=== PATIENT | female | born 1970 | race African-American/Black ===

== ENCOUNTER 2020-04-10 13:44 | Inpatient (IN) | payer MEDICAID ==
[~2020-04-10] VITALS: Ht 167.6 cm; Wt 121.5 kg
--- NOTE | 2020-04-10 14:21 | NUR ---
THIS IS A 49 YO F W/ C/O RT EAR PAIN AND SORE THROAT. PT STATES THAT SHE HAS BEEN GETTING SOB AT NIGHT AND HER LEGS SWELL AT NIGHT. PT DENIES COUGH/CP. PT 82% RA. PLACED ON 2L NC W/ DESIRED EFFECT. PT REPORTS HX OF HTN BUT HAS NOT BEEN ON MEDS X1 YEAR. PT RESTING ON [employer] [employer] W/ CALL LIGHT IN REACH, SIDE RAILS UPX2. AT BEDSIDE FOR ED EVAL. Addendum: 04/10/20 at 1857 by CBRUCIAGA REPORT GIVEN TO MARITZA HACKETT.
--- NOTE | 2020-04-10 14:47 | NUR ---
PIV STARTED, LABS DRAWN AND SENT TO LAB.
[2020-04-10 15:01] LABS: MD NO
[2020-04-10 15:06] LABS: ALBUMIN 3.7 g/dL (3.4-5.0); ANION GAP 5 mmol/L (5-15); CALCIUM 8.4 mg/dL (8.5-10.1); CHLORIDE 106 mmol/L (98-107); CREATININE 0.73 mg/dL (0.55-1.02)
[2020-04-10 15:08] LABS: BASOPHILS # (AUTO) 0.06 x10^3/uL (0-0.1); BASOPHILS % (AUTO) 2 % (0-1); EOSINOPHILS # (AUTO) 0.12 x10^3/uL (0-0.4); EOSINOPHILS % (AUTO) 4 % (1-7); LYMPHOCYTES # (AUTO) 1.42 x10^3/uL (1-3.4); LYMPHOCYTES % (AUTO) 42 % (22-44); MEAN CORPUSCULAR VOLUME 103.2 fL (80-100); MEAN PLATELET VOLUME 7.9 fL (7.4-10.4); MONOCYTES # (AUTO) 0.27 x10^3/uL (0.2-0.8); MONOCYTES % (AUTO) 8 % (2-9); NEUTROPHILS # (AUTO) 1.54 x10^3/uL (1.8-6.8); NEUTROPHILS % (AUTO) 45 % (42-75); PLATELET COUNT 238 x10^3/uL (130-400); RED BLOOD COUNT 3.98 x10^6/uL (3.82-5.3); RED CELL DISTRIBUTION WIDTH 17.7 % (9.6-15.2)
--- NOTE | 2020-04-10 15:08 | NUR ---
PT AMBULATED TO THE BR W/ A STEADY GAIT. 86% RA WHEN RETURNED TO ROOM. PLACED ON 2L NC W/ DESIRED EFFECT. CONNECTED TO ALL MONITORING, AWAITING RESULTS.
[2020-04-10 15:12] LABS: TROPONIN I 0.209 ng/mL (0.000-0.045)
[2020-04-10] MEDS ORDERED: ASPIRIN 81 MG TABLET CHEW ONE (15:17)
[2020-04-10] MEDS ORDERED: ASPIRIN 81 MG TABLET CHEW PO ONE (15:30)
[2020-04-10] MEDS ORDERED: SODIUM CHLORIDE FLUSH 10ML SYR IVF ONE (15:30)
[2020-04-10] MEDS ORDERED: ASPIRIN 325 MG TABLET EC PO ONE (15:30)
--- NOTE | 2020-04-10 15:40 | NUR ---
SPOKE W/ REGARDING PT MEETING SEPSIS CRITERIA. NEW ORDERS RECEIVED.
--- NOTE | 2020-04-10 15:44 | NUR ---
URINE COLLECTED AND SENT TO LAB.
[2020-04-10 16:01] LABS: MICROSCOPIC AUTO
--- NOTE | 2020-04-10 16:23 | NUR ---
PER PT IS NOT COIVD R/O AT THIS TIME.
--- NOTE | 2020-04-10 17:02 | NUR ---
UPDATED ON BP 177/93. NO NEW ORDERS RECEIVED.
--- NOTE | 2020-04-10 17:04 | NUR ---
TELEPHONE CALL TO CT REGARDING DELAY. TECH STATES THAT SHE IS NEXT.
--- NOTE | 2020-04-10 17:16 | NUR ---
PT SLEEPING ON GURNEY W/ SIDE RAILS UPX2. CONNECTED TO ALL MONITORING, HYPERTENSIVE AND TACHYCARDIC, OTHER VS WDL. CHEST RISE AND FALL OBSERVED. AWAITING CTA.
--- NOTE | 2020-04-10 17:23 | NUR ---
PT TO CT.
--- NOTE | 2020-04-10 17:37 | NUR ---
PT BACK FROM CT.
[2020-04-10] MEDS ORDERED: OMNIPAQUE 350 MG/ML, 100ML BOTTLE ONE (17:43)
--- NOTE | 2020-04-10 18:06 | NUR ---
PT UPDATED ON POC FO ADMIT. CARDIOLOGY TO SEE TOMORROW MORNING.
--- NOTE | 2020-04-10 18:17 | NUR ---
Keri lester in [facility] - 04/10/20 at 1818 by ZVE PINK SEPSIS SHEET TUBED TO FLOOR.
--- NOTE | 2020-04-10 18:27 | NUR ---
PT SPO2 90-92% RA WHILE SITTING ON GURNEY. AMBULATED TO THE BR W/ A STEADY GAIT. UPON RETURN 85% RA. PLACED BACK ON 2L NC W/ DESIRED EFFECT.
--- NOTE | 2020-04-10 18:44 | NUR ---
ADMITTING PROVIDER IN ROOM.
--- NOTE | 2020-04-10 18:57 | NUR ---
REPORT FROM ROXANN WEBER
[2020-04-10] MEDS ORDERED: ENOXAPARIN 40 MG/0.4 ML SQ SCH (19:30)
[2020-04-10] MEDS ORDERED: ONDANSETRON 2MG/ML, 2ML IVPush PRN (19:30)
[2020-04-10] MEDS ORDERED: SODIUM CHLORIDE FLUSH 10ML SYR IVF PRN (19:30)
[2020-04-10 19:36] LABS: D-DIMER (DIC) 4.55 ug/mlFEU (0.00-0.52); PROTIME 9.5 Seconds (9.6-11.5)
[2020-04-10 19:39] LABS: C-REACTIVE PROTEIN, QUANT 0.06 mg/dL (0.02-0.49)
[2020-04-10] MEDS ORDERED: OXYcodone/APAP 5/325MG TABLET ONE (20:36)
[2020-04-10] MEDS ORDERED: ENOXAPARIN 40 MG/0.4 ML ONE (20:36)
[2020-04-10] MEDS: OXYcodone/APAP 5/325MG TABLET PO PRN (20:39)
--- NOTE | 2020-04-10 20:50 | NUR ---
PT MEDICATED FOR PAIN DUE TO COMPLAINTS OF PAIN IN THE RIGH EAR.
--- NOTE | 2020-04-10 20:56 | NUR ---
REPORT TO ROXANN OJEDA
[2020-04-10 21:20] LABS: TROPONIN I 0.174 ng/mL (0.000-0.045)
[2020-04-10 21:49] VITALS: BP 172/105
[2020-04-11 00:31] VITALS: BP 171/104
[2020-04-11] MEDS: hydrALAzine 20 MG/ML, 1ML IVPush PRN ×2 (01:21→21:19)
[2020-04-11] MEDS: OXYcodone/APAP 5/325MG TABLET PO PRN (01:23)
[2020-04-11 01:30] VITALS: BP 172/105
[2020-04-11 02:00] VITALS: BP 154/99
[2020-04-11 05:25] LABS: BASOPHILS # (AUTO) 0.02 x10^3/uL (0-0.1); BASOPHILS % (AUTO) 1 % (0-1); EOSINOPHILS # (AUTO) 0.18 x10^3/uL (0-0.4); EOSINOPHILS % (AUTO) 5 % (1-7); LYMPHOCYTES # (AUTO) 1.35 x10^3/uL (1-3.4); LYMPHOCYTES % (AUTO) 40 % (22-44); MD NO; MEAN CORPUSCULAR HEMOGLOBIN 34.3 pg (27.0-34.8); MEAN CORPUSCULAR HGB CONC 33.1 g/dL (32.4-35.8); MEAN CORPUSCULAR VOLUME 103.8 fL (80-100); MEAN PLATELET VOLUME 7.9 fL (7.4-10.4); MONOCYTES # (AUTO) 0.44 x10^3/uL (0.2-0.8); MONOCYTES % (AUTO) 13 % (2-9); NEUTROPHILS % (AUTO) 41 % (42-75); PLATELET COUNT 208 x10^3/uL (130-400); RED BLOOD COUNT 3.78 x10^6/uL (3.82-5.3); RED CELL DISTRIBUTION WIDTH 17.6 % (9.6-15.2)
[2020-04-11 05:28] LABS: ANION GAP 5 mmol/L (5-15); CALCIUM 8.4 mg/dL (8.5-10.1); CHLORIDE 107 mmol/L (98-107); CREATININE 0.65 mg/dL (0.55-1.02)
[2020-04-11 07:32] LABS: CHOL/HDL RATIO 1.9; LDL/HDL RATIO 0.7 (0.5-3.0)
[2020-04-11 08:00] VITALS: BP 148/88
[2020-04-11] MEDS: CHOLECALCIFEROL 1,000 UNIT TABLET PO SCH (08:29)
[2020-04-11] MEDS: ZINC SULFATE 220 MG CAPSULE PO SCH (08:29)
[2020-04-11] MEDS: ASCORBIC ACID 500 MG TABLET PO SCH ×3 (08:29→21:11)
[2020-04-11] MEDS: methylPREDNISolone SOD SUCC 40 MG/ML IV SCH ×2 (08:29→19:52)
[2020-04-11] MEDS: DOXYCYCLINE 100MG TABLET PO SCH ×2 (08:29→21:11)
[2020-04-11] MEDS: ACETAMINOPHEN 325 MG TABLET PO PRN (08:30)
[2020-04-11] MEDS: CEFTRIAXONE PMX 1GM/50ML 50 ML IV SCH (08:31)
[2020-04-11] MEDS ORDERED: DIAZEPAM 5 MG TABLET PO PRN (09:30)
[2020-04-11] MEDS ORDERED: PHENOL THROAT SPRAY BOTTLE MM PRN (11:00)
[2020-04-11] MEDS ORDERED: LORazepam 1MG TABLET PO PRN ×2 (11:00)
[2020-04-11] MEDS ORDERED: LORazepam 2 MG/ML, 1ML IV PRN ×4 (11:00)
[2020-04-11] MEDS ORDERED: LORazepam 0.5MG TABLET PO PRN (11:00)
[2020-04-11] MEDS ORDERED: POTASSIUM CHLORIDE 20 MEQ TAB.ER.PRT PO ONE (11:00)
[2020-04-11] MEDS: LORazepam 1MG TABLET PO PRN ×2 (11:29→19:52)
[2020-04-11] MEDS: THIAMINE 200 MG in DEXTROSE 5% 50 ML IVPB SCH (11:30)
[2020-04-11 12:21] LABS: ALANINE AMINOTRANSFERASE 111 U/L (12-78); ALBUMIN 3.6 g/dL (3.4-5.0); ALKALINE PHOSPHATASE 60 U/L (45-117); BILIRUBIN,TOTAL 0.4 mg/dL (0.2-1.0); TOTAL PROTEIN 7.9 g/dL (6.4-8.2)
[2020-04-11 12:27] LABS: BILIRUBIN, DIRECT < 0.1 mg/dL (0.1-0.2); BILIRUBIN,INDIRECT 0.3 mg/dL (0.0-2.0)
[2020-04-11] MEDS ORDERED: MAGNESIUM SULFATE PMX 2GM/50ML 50 ML IV ONE (13:30)
[2020-04-11 14:00] VITALS: BP 144/86
[2020-04-11 19:54] VITALS: BP 178/88
[2020-04-11] MEDS: ATORVASTATIN 40 MG TABLET PO SCH (21:11)
[2020-04-11] MEDS: ENOXAPARIN 60 MG/0.6 ML SQ SCH (21:11)
[2020-04-11] MEDS: MELATONIN 5 MG TABLET PO SCH (21:11)
[2020-04-12 01:03] VITALS: BP 149/80
[2020-04-12] MEDS: methylPREDNISolone SOD SUCC 40 MG/ML IV SCH ×2 (06:25→17:48)
[2020-04-12] MEDS: ASPIRIN 81 MG TABLET EC PO SCH (06:25)
[2020-04-12] MEDS: THIAMINE 200 MG in DEXTROSE 5% 50 ML IVPB SCH (09:34)
[2020-04-12] MEDS: CEFTRIAXONE PMX 1GM/50ML 50 ML IV SCH (09:34)
[2020-04-12] MEDS: DOXYCYCLINE 100MG TABLET PO SCH ×2 (09:41→21:15)
[2020-04-12] MEDS: ZINC SULFATE 220 MG CAPSULE PO SCH (09:41)
[2020-04-12] MEDS: CHOLECALCIFEROL 1,000 UNIT TABLET PO SCH (09:42)
[2020-04-12] MEDS: ASCORBIC ACID 500 MG TABLET PO SCH ×3 (09:42→21:16)
[2020-04-12] MEDS: LISINOPRIL 20 MG TABLET PO SCH ×2 (09:42→21:16)
[2020-04-12 09:48] VITALS: BP 159/100
[2020-04-12] MEDS: DIAZEPAM 5 MG TABLET PO PRN (12:17)
[2020-04-12] MEDS: hydrALAzine 20 MG/ML, 1ML IVPush PRN (12:30)
[2020-04-12 12:37] VITALS: BP 168/102
[2020-04-12] MEDS ORDERED: AMLODIPINE 10 MG TAB ONE (13:58)
[2020-04-12] MEDS ORDERED: LABETALOL 5MG/ML, 20ML IVPush PRN (14:00)
[2020-04-12] MEDS: AMLODIPINE 5 MG TABLET PO SCH (14:14)
[2020-04-12] MEDS: LORazepam 1MG TABLET PO PRN ×2 (15:32→20:10)
[2020-04-12 20:10] VITALS: BP 177/107
[2020-04-12] MEDS: MELATONIN 5 MG TABLET PO SCH (21:16)
[2020-04-12] MEDS: ATORVASTATIN 40 MG TABLET PO SCH (21:16)
[2020-04-12] MEDS: ENOXAPARIN 60 MG/0.6 ML SQ SCH (21:16)
[2020-04-13 00:30] VITALS: BP 160/79
[2020-04-13] MEDS: ACETAMINOPHEN 325 MG TABLET PO PRN (04:27)
[2020-04-13 05:29] LABS: BASOPHILS # (AUTO) 0.04 x10^3/uL (0-0.1); BASOPHILS % (AUTO) 1 % (0-1); EOSINOPHILS % (AUTO) 0 % (1-7); LYMPHOCYTES # (AUTO) 1.03 x10^3/uL (1-3.4); LYMPHOCYTES % (AUTO) 16 % (22-44); MD NO; MEAN CORPUSCULAR HEMOGLOBIN 33.4 pg (27.0-34.8); MEAN CORPUSCULAR HGB CONC 32.1 g/dL (32.4-35.8); MEAN CORPUSCULAR VOLUME 104.1 fL (80-100); MEAN PLATELET VOLUME 8.5 fL (7.4-10.4); MONOCYTES # (AUTO) 0.65 x10^3/uL (0.2-0.8); MONOCYTES % (AUTO) 10 % (2-9); NEUTROPHILS # (AUTO) 4.73 x10^3/uL (1.8-6.8); NEUTROPHILS % (AUTO) 73 % (42-75); PLATELET COUNT 228 x10^3/uL (130-400); RED BLOOD COUNT 4.23 x10^6/uL (3.82-5.3)
[2020-04-13 05:34] LABS: ALBUMIN 3.7 g/dL (3.4-5.0); ANION GAP 5 mmol/L (5-15); CALCIUM 10.2 mg/dL (8.5-10.1); CHLORIDE 101 mmol/L (98-107)
[2020-04-13 05:37] LABS: ALANINE AMINOTRANSFERASE 61 U/L (12-78); ALKALINE PHOSPHATASE 59 U/L (45-117); BILIRUBIN,TOTAL 0.5 mg/dL (0.2-1.0); TOTAL PROTEIN 8.1 g/dL (6.4-8.2)
[2020-04-13] MEDS: ASPIRIN 81 MG TABLET EC PO SCH (06:03)
[2020-04-13] MEDS: methylPREDNISolone SOD SUCC 40 MG/ML IV SCH ×2 (06:04→18:46)
[2020-04-13 06:31] VITALS: BP 164/108
[2020-04-13] MEDS ORDERED: REGADENOSON 0.4 MG/5 ML SYRINGE ONE ×2 (07:53→07:55)
[2020-04-13] MEDS ORDERED: LISINOPRIL 10 MG TABLET ONE ×2 (08:07→19:56)
[2020-04-13] MEDS: DOXYCYCLINE 100MG TABLET PO SCH ×2 (10:13→20:01)
[2020-04-13] MEDS: ASCORBIC ACID 500 MG TABLET PO SCH ×3 (10:13→20:02)
[2020-04-13] MEDS: CHOLECALCIFEROL 1,000 UNIT TABLET PO SCH (10:13)
[2020-04-13] MEDS: ZINC SULFATE 220 MG CAPSULE PO SCH (10:13)
[2020-04-13] MEDS: LISINOPRIL 20 MG TABLET PO SCH ×2 (10:21→20:52)
[2020-04-13] MEDS: AMLODIPINE 5 MG TABLET PO SCH (10:22)
[2020-04-13] MEDS: CEFTRIAXONE PMX 1GM/50ML 50 ML IV SCH (10:24)
[2020-04-13] MEDS: THIAMINE 200 MG in DEXTROSE 5% 50 ML IVPB SCH (11:13)
[2020-04-13 12:42] VITALS: BP 133/93
[2020-04-13] MEDS ORDERED: SODIUM CHLORIDE 0.9% 1,000 ML IV SCH (12:50)
[2020-04-13] MEDS ORDERED: CEFAZOLIN PMX 1GM/50ML 50 ML IVPB ONE (13:00)
[2020-04-13] MEDS ORDERED: FENTANYL PF 100 MCG/2ML ONE (13:23)
[2020-04-13] MEDS ORDERED: LIDOCAINE 2%, 20ML ONE (13:24)
[2020-04-13] MEDS ORDERED: CEFAZOLIN 1,000 MG ONE (13:24)
[2020-04-13] MEDS ORDERED: CEFAZOLIN PMX 1GM/50ML 50 ML ONE (13:24)
[2020-04-13] MEDS ORDERED: MIDAZOLAM 1 MG/ML, 5ML ONE (13:24)
[2020-04-13 16:41] VITALS: BP 157/86
[2020-04-13 19:04] VITALS: BP 168/108
[2020-04-13] MEDS: ATORVASTATIN 40 MG TABLET PO SCH (20:02)
[2020-04-13] MEDS: MELATONIN 5 MG TABLET PO SCH (20:02)
[2020-04-14 01:49] VITALS: BP 159/110
[2020-04-14] MEDS: ASPIRIN 81 MG TABLET EC PO SCH (05:15)
[2020-04-14] MEDS: SODIUM CHLORIDE 0.9% 1,000 ML IV SCH ×3 (05:16→23:10)
[2020-04-14 07:26] VITALS: BP 158/91
[2020-04-14] MEDS ORDERED: CEFAZOLIN PMX 1GM/50ML 50 ML IV ONE (08:00)
[2020-04-14] MEDS: ASCORBIC ACID 500 MG TABLET PO SCH ×3 (08:29→23:09)
[2020-04-14] MEDS: ZINC SULFATE 220 MG CAPSULE PO SCH (08:30)
[2020-04-14] MEDS: AMLODIPINE 5 MG TABLET PO SCH (08:30)
[2020-04-14] MEDS: CHOLECALCIFEROL 1,000 UNIT TABLET PO SCH (08:30)
[2020-04-14] MEDS: methylPREDNISolone SOD SUCC 40 MG/ML IV SCH ×2 (08:30→23:08)
[2020-04-14] MEDS: DOXYCYCLINE 100MG TABLET PO SCH ×2 (08:30→23:09)
[2020-04-14] MEDS: LISINOPRIL 20 MG TABLET PO SCH ×2 (08:35→23:09)
[2020-04-14] MEDS: CEFTRIAXONE PMX 1GM/50ML 50 ML IV SCH (09:31)
[2020-04-14] MEDS ORDERED: THIAMINE 100MG TABLET PO SCH (10:00)
[2020-04-14] MEDS: THIAMINE 100MG TABLET PO SCH (10:18)
[2020-04-14] MEDS: DIAZEPAM 5 MG TABLET PO PRN (10:24)
[2020-04-14 12:51] VITALS: BP 154/103
[2020-04-14] MEDS ORDERED: MIDAZOLAM 1 MG/ML, 2ML ONE ×3 (13:24→14:41)
[2020-04-14] MEDS ORDERED: CEFAZOLIN PMX 1GM/50ML 50 ML ONE (13:24)
[2020-04-14] MEDS ORDERED: FENTANYL PF 100 MCG/2ML ONE ×3 (13:24→14:41)
[2020-04-14] MEDS ORDERED: CEFAZOLIN 1,000 MG ONE (13:24)
[2020-04-14] MEDS ORDERED: LIDOCAINE 1%, 20ML ONE ×2 (13:24→14:36)
[2020-04-14] MEDS ORDERED: LIDOCAINE 2%, 20ML ONE (14:25)
[2020-04-14] MEDS ORDERED: HOLD MEDICATION MC PRN (15:30)
[2020-04-14] MEDS ORDERED: ACETAMINOPHEN 325 MG TABLET PO PRN (15:30)
[2020-04-14 19:20] VITALS: BP 149/74
[2020-04-14] MEDS: CEFAZOLIN PMX 1GM/50ML 100 ML IVPB SCH (23:08)
[2020-04-14] MEDS: ATORVASTATIN 40 MG TABLET PO SCH (23:08)
[2020-04-14] MEDS: MELATONIN 5 MG TABLET PO SCH (23:09)
[2020-04-14 23:13] VITALS: BP 134/91
[2020-04-15 03:35] VITALS: BP 137/80
[2020-04-15] MEDS: SODIUM CHLORIDE 0.9% 1,000 ML IV SCH (06:00)
[2020-04-15] MEDS: ASPIRIN 81 MG TABLET EC PO SCH (06:32)
[2020-04-15] MEDS: CEFAZOLIN PMX 1GM/50ML 100 ML IVPB SCH (06:32)
[2020-04-15 07:32] VITALS: BP 148/87
[2020-04-15] MEDS ORDERED: METOPROLOL SUCCINATE 25 MG TAB.ER.24H PO SCH (08:00)
[2020-04-15] MEDS: methylPREDNISolone SOD SUCC 40 MG/ML IV SCH (08:37)
[2020-04-15] MEDS: CEFTRIAXONE PMX 1GM/50ML 50 ML IV SCH (08:37)
[2020-04-15] MEDS: ASCORBIC ACID 500 MG TABLET PO SCH (08:37)
[2020-04-15] MEDS: DOXYCYCLINE 100MG TABLET PO SCH (08:37)
[2020-04-15] MEDS: CHOLECALCIFEROL 1,000 UNIT TABLET PO SCH (08:38)
[2020-04-15] MEDS: AMLODIPINE 5 MG TABLET PO SCH (08:38)
[2020-04-15] MEDS: ZINC SULFATE 220 MG CAPSULE PO SCH (08:38)
[2020-04-15] MEDS: THIAMINE 100MG TABLET PO SCH (08:38)
[2020-04-15] MEDS ORDERED: LOSARTAN 50MG TABLET PO SCH (09:00)
[2020-04-15] MEDS ORDERED: ATOR40TA78 PO (11:46)
[2020-04-15] MEDS ORDERED: ASCO500T9 PO (11:46)
[2020-04-15] MEDS ORDERED: AMLO-150 PO (11:46)
[2020-04-15] MEDS ORDERED: LOSA50TA2 PO (11:46)
[2020-04-15] MEDS ORDERED: CHOL10003 PO (11:46)
[2020-04-15] MEDS ORDERED: METO25TA91 PO (11:46)
[2020-04-15] MEDS ORDERED: ASPI81TA45 PO (11:46)
== END 2020-04-15 13:28 | disposition home or self-care (01) | DRG 242 ==
LOC: ED 14:48 → EDIP 18:34 → ICU 21:35 → 4WST 04-13 00:08 → 5SO 04-14 14:55 → DCLOUNGE 04-15 13:00
PROVIDERS: ADMIT Internal Medicine; ATTEND Family Medicine
PROC: 0JH606Z Insertion of Pacemaker, Dual Chamber into Chest Subcutaneous Tissue and Fascia, Open Approach (ICD-10-PCS; principal; 2020-04-14)
PROC: 02HK3JZ Insertion of Pacemaker Lead into Right Ventricle, Percutaneous Approach (ICD-10-PCS; 2020-04-14)
PROC: 02H63JZ Insertion of Pacemaker Lead into Right Atrium, Percutaneous Approach (ICD-10-PCS; 2020-04-14)
DX: I49.5 Sick sinus syndrome (principal); I21.A1 Myocardial infarction type 2; I46.9 Cardiac arrest, cause unspecified; J96.91 Respiratory failure, unspecified with hypoxia; I82.B12 Acute embolism and thrombosis of left subclavian vein; Z20.828 Contact with and (suspected) exposure to other viral communicable diseases; D72.819 Decreased white blood cell count, unspecified; D75.89 Other specified diseases of blood and blood-forming organs; E66.01 Morbid (severe) obesity due to excess calories; E78.5 Hyperlipidemia, unspecified; F17.210 Nicotine dependence, cigarettes, uncomplicated; G47.33 Obstructive sleep apnea (adult) (pediatric); I11.9 Hypertensive heart disease without heart failure; H92.01 Otalgia, right ear; M79.89 Other specified soft tissue disorders; R60.0 Localized edema; Z03.818 Encounter for observation for suspected exposure to other biological agents ruled out
CPT/HCPCS: 36415; 84145; 93017; 96372; 99285; J3490; 71045; 71275; 78452; 80048; 80053; 80061; 80076; 81001; 82040; 82607; 82728; 83605; 83615; 83735; 83880; 84100; 84443; 84484; 85025; 85049; 85379; 85384; 85610; 85730; 86140; 87040; 87081; 87635; 87880; 93005; 93308; 93321; 93325; G0378; J0690; J0696; J1650; J2250; J2785; J3010; J3411; Q9967; A9502; J0360; J2920; J3475; J7030

== ENCOUNTER 2020-04-29 16:55 | Observation (INO) | payer MEDICAID ==
[~2020-04-29] VITALS: Ht 167.6 cm; Wt 119.5 kg
[~2020-04-29 16:55] MED LIST: AMLO-150 PO; ASCO500T9 PO; ASPI81TA45 PO; ATOR40TA78 PO; CHOL10003 PO; LOSA50TA2 PO; METO25TA91 PO
--- NOTE | 2020-04-29 17:27 | NUR ---
DEPUTY PROBATION OFFICER: PT TO ROOM FROM ANABELLA GARCÍA
[2020-04-29 19:32] LABS: BASOPHILS # (AUTO) 0.02 x10^3/uL (0-0.1); BASOPHILS % (AUTO) 1 % (0-1); EOSINOPHILS # (AUTO) 0.23 x10^3/uL (0-0.4); EOSINOPHILS % (AUTO) 5 % (1-7); LYMPHOCYTES # (AUTO) 1.41 x10^3/uL (1-3.4); LYMPHOCYTES % (AUTO) 33 % (22-44); MD NO; MEAN CORPUSCULAR HGB CONC 32.3 g/dL (32.4-35.8); MEAN CORPUSCULAR VOLUME 105.2 fL (80-100); MEAN PLATELET VOLUME 7.3 fL (7.4-10.4); MONOCYTES # (AUTO) 0.38 x10^3/uL (0.2-0.8); MONOCYTES % (AUTO) 9 % (2-9); NEUTROPHILS # (AUTO) 2.25 x10^3/uL (1.8-6.8); NEUTROPHILS % (AUTO) 52 % (42-75); PLATELET COUNT 385 x10^3/uL (130-400)
[2020-04-29 19:42] LABS: ALANINE AMINOTRANSFERASE 96 U/L (12-78); ALBUMIN 3.6 g/dL (3.4-5.0); ANION GAP 5 mmol/L (5-15); CALCIUM 8.8 mg/dL (8.5-10.1); CHLORIDE 104 mmol/L (98-107); CREATININE 0.64 mg/dL (0.55-1.02)
[2020-04-29 19:46] LABS: ALKALINE PHOSPHATASE 79 U/L (45-117); BILIRUBIN,TOTAL 0.5 mg/dL (0.2-1.0); TOTAL PROTEIN 7.6 g/dL (6.4-8.2); TROPONIN I 0.081 ng/mL (0.000-0.045)
--- NOTE | 2020-04-29 21:00 | NUR ---
REPORT FROM BETH HACKETT. PT RESTING WITH NO NEEDS AT THIS TIME. PT WAITING FOR US READ. CALL LIGHT IN REACH
--- NOTE | 2020-04-29 22:18 | NUR ---
PT GIVEN A SNACK OK PER MD. PIV PLACED AND MED REC COMPLETE. VSS. PT TO BE ADMITTED. PT UPDATED ON POC. CALL LIGHT IN REACH
[2020-04-30] MEDS ORDERED: NITROGLYCERIN 0.4 MG BOTTLE (25 TABS) SL PRN
[2020-04-30] MEDS ORDERED: POLYETHYLENE GLYCOL 17 GM PACKET PO PRN
[2020-04-30] MEDS ORDERED: ONDANSETRON 2MG/ML, 2ML IVPush PRN
[2020-04-30] MEDS ORDERED: morphine SULFATE 10 MG/ML, 1ML IVPush PRN
[2020-04-30] MEDS ORDERED: ENOXAPARIN 40 MG/0.4 ML SQ SCH
[2020-04-30] MEDS ORDERED: hydrALAzine 20 MG/ML, 1ML IVPush PRN
[2020-04-30] MEDS ORDERED: BISACODYL 10 MG SUPP PR PRN
[2020-04-30] MEDS ORDERED: ACETAMINOPHEN 325 MG TABLET PO PRN
[2020-04-30] MEDS ORDERED: OXYcodone IR 5MG TABLET PO PRN
[2020-04-30] MEDS ORDERED: FUROSEMIDE 20 MG/2 ML IV ONE
[2020-04-30] MEDS ORDERED: LORazepam 2 MG/ML, 1ML IVPush ONE (00:30)
[2020-04-30] MEDS: MELATONIN 5 MG TABLET PO PRN ×2 (01:36→21:38)
[2020-04-30] MEDS: NICOTINE 14MG/24 HR PATCH.TD24 TD SCH (01:45)
[2020-04-30 02:03] VITALS: BP 148/86
[2020-04-30 02:37] LABS: BASOPHILS # (AUTO) 0.06 x10^3/uL (0-0.1); BASOPHILS % (AUTO) 1 % (0-1); EOSINOPHILS # (AUTO) 0.23 x10^3/uL (0-0.4); EOSINOPHILS % (AUTO) 3 % (1-7); LYMPHOCYTES # (AUTO) 1.52 x10^3/uL (1-3.4); LYMPHOCYTES % (AUTO) 20 % (22-44); MD NO; MEAN CORPUSCULAR HEMOGLOBIN 33.9 pg (27.0-34.8); MEAN CORPUSCULAR HGB CONC 32.4 g/dL (32.4-35.8); MEAN CORPUSCULAR VOLUME 104.8 fL (80-100); MEAN PLATELET VOLUME 7.6 fL (7.4-10.4); MONOCYTES # (AUTO) 0.48 x10^3/uL (0.2-0.8); MONOCYTES % (AUTO) 6 % (2-9); NEUTROPHILS # (AUTO) 5.21 x10^3/uL (1.8-6.8); NEUTROPHILS % (AUTO) 70 % (42-75); PLATELET COUNT 335 x10^3/uL (130-400); RED BLOOD COUNT 4.03 x10^6/uL (3.82-5.3); RED CELL DISTRIBUTION WIDTH 17.6 % (9.6-15.2)
[2020-04-30 02:42] LABS: ALANINE AMINOTRANSFERASE 92 U/L (12-78); ALBUMIN 3.8 g/dL (3.4-5.0); ANION GAP 6 mmol/L (5-15); CALCIUM 9.2 mg/dL (8.5-10.1); CHLORIDE 102 mmol/L (98-107); CREATININE 0.78 mg/dL (0.55-1.02)
[2020-04-30 02:51] LABS: TROPONIN I 0.077 ng/mL (0.000-0.045)
[2020-04-30 02:52] LABS: ALKALINE PHOSPHATASE 78 U/L (45-117); BILIRUBIN,TOTAL 0.8 mg/dL (0.2-1.0); TOTAL PROTEIN 7.8 g/dL (6.4-8.2)
[2020-04-30] MEDS: METOPROLOL SUCCINATE 50 MG TAB.ER.24H PO SCH (05:17)
[2020-04-30] MEDS ORDERED: ASPIRIN 325 MG TABLET EC PO SCH (06:00)
[2020-04-30] MEDS ORDERED: ASPIRIN 81 MG TABLET EC PO SCH (06:00)
[2020-04-30 08:12] VITALS: BP 151/95
[2020-04-30 08:25] LABS: TROPONIN I 0.076 ng/mL (0.000-0.045)
[2020-04-30] MEDS: SENNA/DOCUSATE TABLET PO SCH (08:26)
[2020-04-30] MEDS: FAMOTIDINE 20 MG TABLET PO SCH ×2 (08:27→21:38)
[2020-04-30] MEDS: ASCORBIC ACID 500 MG TABLET PO SCH ×3 (08:27→21:38)
[2020-04-30] MEDS: CHOLECALCIFEROL 1,000 UNIT TABLET PO SCH (08:27)
[2020-04-30] MEDS: AMLODIPINE 10 MG TAB PO SCH (08:27)
[2020-04-30] MEDS: LOSARTAN 50MG TABLET PO SCH (08:27)
[2020-04-30] MEDS ORDERED: POTASSIUM CHLORIDE 20 MEQ TAB.ER.PRT PO ONE (09:00)
[2020-04-30] MEDS ORDERED: FAMOTIDINE 20 MG/2 ML IVPush SCH (09:00)
[2020-04-30 14:45] VITALS: BP 148/95
[2020-04-30 19:59] VITALS: BP 127/96
[2020-04-30] MEDS ORDERED: ATORVASTATIN 40 MG TABLET PO SCH (21:00)
[2020-04-30] MEDS ORDERED: ATORVASTATIN 80 MG TABLET PO SCH (21:00)
[2020-04-30] MEDS: APIXABAN 5 MG TABLET PO SCH (21:38)
[2020-05-01 02:06] VITALS: BP 125/83
[2020-05-01] MEDS ORDERED: ASPIRIN 81 MG TABLET EC PO SCH (06:00)
[2020-05-01 06:22] LABS: CHOL/HDL RATIO 1.9; LDL/HDL RATIO 0.7 (0.5-3.0)
[2020-05-01 06:35] VITALS: BP 119/74
[2020-05-01] MEDS: METOPROLOL SUCCINATE 50 MG TAB.ER.24H PO SCH (06:36)
[2020-05-01] MEDS: NICOTINE 14MG/24 HR PATCH.TD24 TD SCH (06:37)
[2020-05-01] MEDS: CHOLECALCIFEROL 1,000 UNIT TABLET PO SCH (09:00)
[2020-05-01] MEDS ORDERED: METOPROLOL SUCCINATE 25 MG TAB.ER.24H PO SCH (09:30)
[2020-05-01 10:30] VITALS: BP 138/83
[2020-05-01] MEDS ORDERED: ALPR0.254 PO (10:35)
[2020-05-01] MEDS ORDERED: APIX5TAB PO (10:35)
[2020-05-01] MEDS ORDERED: ATOR40TA78 PO (10:35)
[2020-05-01] MEDS ORDERED: METO25TA91 PO (10:35)
[2020-05-01 10:39] VITALS: BP 113/75
[2020-05-01] MEDS: FAMOTIDINE 20 MG TABLET PO SCH (10:41)
[2020-05-01] MEDS: SENNA/DOCUSATE TABLET PO SCH (10:42)
[2020-05-01] MEDS: ASCORBIC ACID 500 MG TABLET PO SCH (10:42)
[2020-05-01] MEDS: APIXABAN 5 MG TABLET PO SCH (10:43)
[2020-05-01] MEDS: AMLODIPINE 10 MG TAB PO SCH (10:43)
[2020-05-01] MEDS: LOSARTAN 50MG TABLET PO SCH (10:43)
== END 2020-05-01 12:37 | disposition home or self-care (01) ==
LOC: ED 18:39 → EDIP 22:08 → INTOOBSV 22:08 → 4EST 04-30 00:27 → DCLOUNGE 05-01 12:08
PROVIDERS: ADMIT Family Medicine; ATTEND Hospitalist
DX: I21.4 Non-ST elevation (NSTEMI) myocardial infarction (principal); R53.1 Weakness; D75.89 Other specified diseases of blood and blood-forming organs; R73.9 Hyperglycemia, unspecified; R74.0 Nonspecific elevation of levels of transaminase and lactic acid dehydrogenase [LDH]; E66.9 Obesity, unspecified; I10 Essential (primary) hypertension; F17.200 Nicotine dependence, unspecified, uncomplicated; G47.33 Obstructive sleep apnea (adult) (pediatric); I25.2 Old myocardial infarction; R94.31 Abnormal electrocardiogram [ECG] [EKG]; R20.2 Paresthesia of skin; R60.0 Localized edema; H66.91 Otitis media, unspecified, right ear; I49.5 Sick sinus syndrome; F19.10 Other psychoactive substance abuse, uncomplicated; R06.02 Shortness of breath; I48.20 Chronic atrial fibrillation, unspecified; M47.22 Other spondylosis with radiculopathy, cervical region; F41.9 Anxiety disorder, unspecified; Z72.89 Other problems related to lifestyle; Z79.82 Long term (current) use of aspirin; Z79.899 Other long term (current) drug therapy; Z95.0 Presence of cardiac pacemaker; Z68.41 Body mass index [BMI] 40.0-44.9, adult
CPT/HCPCS: 36415; 70450; 71045; 72125; 80053; 80061; 83036; 83880; 84425; 84443; 84484; 85025; 93005; 93306; 93971; 96372; 96374; 96375; 97161; 97165; 99285; G0378; J1650; J1940; J2060

== ENCOUNTER 2021-03-22 15:27 | Inpatient (IN) | payer MEDICAID ==
[~2021-03-22] VITALS: Ht 165.1 cm; Wt 123.2 kg
[~2021-03-22 15:27] MED LIST changes: +ALPR0.254 PO; +APIX5TAB PO
[2021-03-22] MEDS ORDERED: DEXAMETHASONE 4 MG/ML, 1ML PO ONE (16:00)
[2021-03-22] MEDS ORDERED: DEXAMETHASONE 4 MG/ML, 1ML ONE (16:05)
[2021-03-22] MEDS ORDERED: DILTIAZEM 5 MG/ML, 5ML ONE ×2 (16:23→17:08)
--- NOTE | 2021-03-22 16:30 | NUR ---
PT GIVEN [address] CORDERO VERBAL ORDER.
[2021-03-22 16:33] LABS: MEAN CORPUSCULAR HEMOGLOBIN 35.5 pg (27.0-34.8); MEAN CORPUSCULAR HGB CONC 32.6 g/dL (32.4-35.8); PLATELET COUNT 278 x10^3/uL (130-400); RED BLOOD COUNT 3.97 x10^6/uL (3.82-5.3)
[2021-03-22 16:44] LABS: ALANINE AMINOTRANSFERASE 104 U/L (12-78); ALBUMIN 4.1 g/dL (3.4-5.0); ANION GAP 17 mmol/L (5-15); CALCIUM 8.8 mg/dL (8.5-10.1); CHLORIDE 90 mmol/L (98-107)
[2021-03-22 16:46] LABS: ALKALINE PHOSPHATASE 65 U/L (45-117); BILIRUBIN,TOTAL 1.1 mg/dL (0.2-1.0); TOTAL PROTEIN 7.9 g/dL (6.4-8.2)
[2021-03-22] MEDS ORDERED: DILTIAZEM 5 MG/ML, 5ML IVPush ONE ×3 (17:00→23:00)
[2021-03-22 17:18] LABS: BASOS#(MANUAL) 0.09 x10^3/uL (0-0.1); BASOS% (MANUAL) 3 % (0-1); EOS#(MANUAL) 0.03 x10^3/uL (0.0-0.4); EOS% (MANUAL) 1 % (1-7); LYMPH#(MANUAL) 1.05 x10^3/uL (1-3.4); LYMPHS% (MANUAL) 35 % (22-44); MONOS#(MANUAL) 0.45 x10^3/uL (0.3-2.7); MONOS% (MANUAL) 15 % (2-9); SEG#(MANUAL) 1.38 x10^3/uL (1.8-6.8); SEGS% (MANUAL) 46 % (42-75)
[2021-03-22 17:20] LABS: <PLATELET ESTIMATE> ADEQUATE; ANISOCYTOSIS 1+; POLYCHROMASIA 1+
--- NOTE | 2021-03-22 17:27 | NUR ---
PT OFF THE FLOOR TO CT
[2021-03-22] MEDS ORDERED: METOPROLOL 1 MG/ML, 5ML IVPush ONE (17:44)
[2021-03-22] MEDS ORDERED: OMNIPAQUE 350 MG/ML, 75ML BOTTLE ONE (17:45)
[2021-03-22] MEDS ORDERED: HEPARIN 5,000 UNITS/ML, 1ML IV ONE (18:00)
[2021-03-22] MEDS ORDERED: HEPARIN 25,000 UNITS/250ML PMX 250 ML IV PRN (18:00)
[2021-03-22] MEDS ORDERED: HEPARIN 5,000 UNITS/ML, 1ML IV PRN (18:00)
[2021-03-22] MEDS ORDERED: HEPARIN 5,000 UNITS/ML, 1ML ONE ×2 (18:02→19:42)
[2021-03-22] MEDS ORDERED: METOPROLOL 1 MG/ML, 5ML ONE ×3 (18:02→18:36)
[2021-03-22] MEDS ORDERED: HEPARIN 25,000 UNITS/250ML PMX 250 ML ONE (18:02)
--- NOTE | 2021-03-22 19:47 | NUR ---
REPORT TO ROXANN PARMAR
[2021-03-22] MEDS ORDERED: DOCUSATE 100 MG CAPSULE PO PRN (20:00)
[2021-03-22] MEDS ORDERED: ONDANSETRON ODT 4 MG PO PRN (20:00)
[2021-03-22] MEDS ORDERED: hydrALAzine 20 MG/ML, 1ML IVPush PRN (20:00)
[2021-03-22] MEDS ORDERED: DILTIAZEM 125 MG in SODIUM CHLORIDE 0.9% 100 ML IV SCH (20:00)
[2021-03-22] MEDS ORDERED: POLYETHYLENE GLYCOL 17 GM PACKET PO PRN (20:00)
[2021-03-22] MEDS ORDERED: ONDANSETRON 2MG/ML, 2ML IVPush PRN (20:00)
[2021-03-22] MEDS ORDERED: PROMETHAZINE 25 MG/ML, 1ML IM PRN (20:00)
[2021-03-22] MEDS ORDERED: ACETAMINOPHEN 325 MG TABLET PO PRN (20:00)
[2021-03-22] MEDS ORDERED: morphine SULFATE 10 MG/ML, 1ML IVPush PRN (20:00)
[2021-03-22] MEDS ORDERED: BISACODYL 10 MG SUPP PR PRN (20:00)
[2021-03-22] MEDS ORDERED: OXYcodone IR 5MG TABLET PO PRN (20:00)
[2021-03-22] MEDS ORDERED: FUROSEMIDE 20 MG/2 ML IV ONE (21:30)
[2021-03-22] MEDS: DILTIAZEM 60 MG TABLET PO SCH (23:03)
[2021-03-22] MEDS: APIXABAN 5 MG TABLET PO SCH (23:32)
[2021-03-23 01:18] VITALS: BP 119/78
[2021-03-23 05:45] LABS: MEAN CORPUSCULAR HEMOGLOBIN 35.7 pg (27.0-34.8); MEAN CORPUSCULAR HGB CONC 32.7 g/dL (32.4-35.8); MEAN PLATELET VOLUME 8.2 fL (7.4-10.4); PLATELET COUNT 197 x10^3/uL (130-400); RED BLOOD COUNT 3.98 x10^6/uL (3.82-5.3); RED CELL DISTRIBUTION WIDTH 17.3 % (9.6-15.2)
[2021-03-23 05:56] LABS: ALBUMIN 3.6 g/dL (3.4-5.0); ANION GAP 19 mmol/L (5-15); CALCIUM 8.9 mg/dL (8.5-10.1); CHLORIDE 95 mmol/L (98-107); CREATININE 1.26 mg/dL (0.55-1.02)
[2021-03-23 06:00] LABS: ALKALINE PHOSPHATASE 59 U/L (45-117); BILIRUBIN,TOTAL 1.1 mg/dL (0.2-1.0); HDL CHOLESTEROL (DIRECT) 92 mg/dL (40-60); TOTAL PROTEIN 8.1 g/dL (6.4-8.2)
[2021-03-23 06:17] LABS: EOS#(MANUAL) 0.03 x10^3/uL (0.0-0.4); EOS% (MANUAL) 1 % (1-7); LYMPH#(MANUAL) 0.34 x10^3/uL (1-3.4); LYMPHS% (MANUAL) 13 % (22-44); MONOS#(MANUAL) 0.18 x10^3/uL (0.3-2.7); MONOS% (MANUAL) 7 % (2-9); SEG#(MANUAL) 2.05 x10^3/uL (1.8-6.8); SEGS% (MANUAL) 79 % (42-75)
[2021-03-23 06:21] LABS: ANISOCYTOSIS 1+
[2021-03-23 06:22] LABS: <PLATELET ESTIMATE> ADEQUATE; <PLT MORPHOLOGY> NORMAL PLT MORPH
[2021-03-23] MEDS: DILTIAZEM 60 MG TABLET PO SCH (06:23)
[2021-03-23 07:05] VITALS: BP 144/73
[2021-03-23 07:13] LABS: ALANINE AMINOTRANSFERASE 93 U/L (12-78); CHOLESTEROL, TOTAL 183 mg/dL (140-239); HDL CHOL % 50 % (28-40); LDL CHOLESTEROL,CALCULATED 70 mg/dL (54-169); LDL/HDL RATIO 0.8 (0.5-3.0); TRIGLYCERIDES 103 mg/dL (50-200); VLDL CHOLESTEROL 21 mg/dL (0-25)
[2021-03-23] MEDS: APIXABAN 5 MG TABLET PO SCH ×2 (10:17→20:30)
[2021-03-23] MEDS: DILTIAZEM 125 MG in SODIUM CHLORIDE 0.9% 100 ML IV SCH ×2 (10:19→18:20)
[2021-03-23] MEDS ORDERED: POTASSIUM CHLORIDE 20 MEQ TAB.ER.PRT PO ONE (11:00)
[2021-03-23] MEDS ORDERED: POTASSIUM CHLORIDE 40 MEQ in SODIUM CHLORIDE 0.9% 500 ML IV ONE (11:00)
[2021-03-23] MEDS: METOPROLOL SUCCINATE 25 MG TAB.ER.24H PO SCH ×2 (12:28→20:30)
[2021-03-23 13:00] VITALS: BP 118/83
[2021-03-23 20:00] VITALS: BP 120/78
[2021-03-23] MEDS: ATORVASTATIN 80 MG TABLET PO SCH (20:30)
[2021-03-24 00:27] VITALS: BP 111/77
[2021-03-24 01:19] VITALS: BP 115/71
[2021-03-24] MEDS: DILTIAZEM 125 MG in SODIUM CHLORIDE 0.9% 100 ML IV SCH (02:33)
[2021-03-24 06:11] LABS: BASOPHILS % (AUTO) 0 % (0-1); EOSINOPHILS % (AUTO) 0 % (1-7); LYMPHOCYTES % (AUTO) 22 % (22-44); MEAN CORPUSCULAR HEMOGLOBIN 35.9 pg (27.0-34.8); MEAN CORPUSCULAR HGB CONC 32.8 g/dL (32.4-35.8); MEAN PLATELET VOLUME 8.2 fL (7.4-10.4); MONOCYTES % (AUTO) 18 % (2-9); NEUTROPHILS % (AUTO) 59 % (42-75); PLATELET COUNT 275 x10^3/uL (130-400); RED BLOOD COUNT 3.75 x10^6/uL (3.82-5.3); RED CELL DISTRIBUTION WIDTH 17.1 % (9.6-15.2)
[2021-03-24] MEDS: ASPIRIN 81 MG TABLET EC PO SCH (06:12)
[2021-03-24 06:24] LABS: ANION GAP 6 mmol/L (5-15); CHLORIDE 97 mmol/L (98-107)
[2021-03-24 06:25] LABS: CREATININE 1.26 mg/dL (0.55-1.02)
[2021-03-24 07:15] VITALS: BP 128/70
[2021-03-24] MEDS: APIXABAN 5 MG TABLET PO SCH ×2 (09:14→20:52)
[2021-03-24] MEDS: AMLODIPINE 10 MG TAB PO SCH (09:14)
[2021-03-24] MEDS: LOSARTAN 50MG TABLET PO SCH (09:14)
[2021-03-24] MEDS: METOPROLOL SUCCINATE 25 MG TAB.ER.24H PO SCH ×2 (09:14→20:52)
[2021-03-24] MEDS ORDERED: ACETAMINOPHEN 325 MG TABLET PO PRN (11:00)
[2021-03-24] MEDS ORDERED: PROPOFOL 10 MG/ML, 20ML ONE ×2 (11:07)
[2021-03-24 13:36] VITALS: BP 94/60
[2021-03-24] MEDS ORDERED: NICOTINE 7 MG/24 HR PATCH.TD24 TD SCH (14:00)
[2021-03-24 20:48] VITALS: BP 120/83
[2021-03-24] MEDS: ATORVASTATIN 80 MG TABLET PO SCH (20:52)
[2021-03-25 00:55] VITALS: BP 102/71
[2021-03-25] MEDS: ASPIRIN 81 MG TABLET EC PO SCH (06:24)
[2021-03-25 07:06] VITALS: BP 131/78
[2021-03-25] MEDS: APIXABAN 5 MG TABLET PO SCH (08:24)
[2021-03-25] MEDS: AMLODIPINE 10 MG TAB PO SCH (08:24)
[2021-03-25] MEDS: LOSARTAN 50MG TABLET PO SCH (08:24)
[2021-03-25] MEDS: METOPROLOL SUCCINATE 25 MG TAB.ER.24H PO SCH (08:24)
[2021-03-25] MEDS ORDERED: METO25TA91 PO (10:13)
[2021-03-25] MEDS ORDERED: NICO-485 TD (10:13)
[2021-03-25] MEDS ORDERED: POTASSIUM CHLORIDE 20 MEQ TAB.ER.PRT PO ONE (11:00)
[2021-03-25] MEDS ORDERED: FLECAINIDE 100MG TABLET PO SCH (12:00)
[2021-03-25 12:33] VITALS: BP 101/65
[2021-03-25] MEDS ORDERED: FLEC100T PO (14:56)
== END 2021-03-25 16:50 | disposition home or self-care (01) | DRG 308 ==
LOC: ED 16:48 → EDIP 18:00 → 5SO 20:03
PROVIDERS: ADMIT Internal Medicine; ATTEND Internal Medicine
PROC: 5A2204Z Restoration of Cardiac Rhythm, Single (ICD-10-PCS; principal; 2021-03-24)
PROC: 4B02XSZ Measurement of Cardiac Pacemaker, External Approach (ICD-10-PCS; 2021-03-24)
DX: I48.0 Paroxysmal atrial fibrillation (principal); I50.33 Acute on chronic diastolic (congestive) heart failure; J96.01 Acute respiratory failure with hypoxia; N17.9 Acute kidney failure, unspecified; D72.819 Decreased white blood cell count, unspecified; E66.01 Morbid (severe) obesity due to excess calories; E78.5 Hyperlipidemia, unspecified; E87.6 Hypokalemia; F10.10 Alcohol abuse, uncomplicated; G47.33 Obstructive sleep apnea (adult) (pediatric); F17.200 Nicotine dependence, unspecified, uncomplicated; I25.2 Old myocardial infarction; I11.0 Hypertensive heart disease with heart failure; M43.02 Spondylolysis, cervical region; M47.812 Spondylosis without myelopathy or radiculopathy, cervical region; Z20.822 Contact with and (suspected) exposure to COVID-19; Z56.0 Unemployment, unspecified; Z80.3 Family history of malignant neoplasm of breast; Z91.14 Patient's other noncompliance with medication regimen; Z91.19 Patient's noncompliance with other medical treatment and regimen; Z95.0 Presence of cardiac pacemaker; I49.5 Sick sinus syndrome; R74.01 Elevation of levels of liver transaminase levels; Z71.6 Tobacco abuse counseling; F41.9 Anxiety disorder, unspecified; F19.10 Other psychoactive substance abuse, uncomplicated
CPT/HCPCS: 36415; 71045; 71275; 80048; 80053; 80061; 80074; 83036; 83735; 84100; 84443; 85025; 85520; 93005; 93306; 93312; 93321; 93325; 96374; 96375; 99291; G0378; J1100; J1644; J2704; Q9967; U0005; J1940; U0003